=== PATIENT | female | born 1990 | race Caucasian/White ===

== ENCOUNTER 2021-01-04 20:02 | Emergency (ER) | payer SELFPAY ==
[2021-01-04 20:19] VITALS: BP 135/78; PULSE 88; TEMP 98.2; BMI 26.5
[2021-01-04] MEDS ORDERED: SODIUM CHLORIDE 1,000 ML IV ONE (20:28)
[2021-01-04 20:47] LABS: BASO % 1.1 % (0-2.0); EOS % 3.3 % (0-4.5); HEMATOCRIT 40.4 % (32.4-45.2); HEMOGLOBIN 14.2 GM/dl (10.7-15.3); LYMPH % 30.3 % (8-40); MCH 31.2 pg (25.7-33.7); MCHC 35.2 g/dl (32.0-36.0); MEAN CELL VOLUME 88.6 fl (80-96); MEAN PLT VOLUME 8.9 fl (7.5-11.1); MONO % 9.4 % (3.8-10.2); NEUT % 55.9 % (42.8-82.8); PLATELET COUNT 296 10^3/uL (134-434); RBC 4.56 M/mm3 (3.60-5.2); RDW 11.7 % (11.6-15.6); WHITE BLOOD COUNT 7.8 K/mm3 (4.0-10.8)
[2021-01-04 21:02] LABS: EPITHELIAL CELLS FEW /hpf
[2021-01-04 21:05] LABS: BILIRUBIN,TOTAL 0.9 mg/dl (0.2-1); CREATININE 0.8 mg/dl (0.55-1.3); TOT PROT 6.5 g/dl (6.4-8.2)
== END 2021-01-04 21:31 | disposition home or self-care (01) ==
LOC: FER 20:02
PROC: 3E0337Z Introduction of Electrolytic and Water Balance Substance into Peripheral Vein, Percutaneous Approach (ICD-10-PCS; principal; 2021-01-04)
DX: R20.2 Paresthesia of skin (principal)
CPT/HCPCS: 36415; 80053; 81003; 81015; 84703; 85025; 93005; 99284-25

== ENCOUNTER 2023-07-29 11:53 | Emergency (ER) | payer OTHER ==
[2023-07-29 12:15] VITALS: BP 133/81; PULSE 72; RESP 18; TEMP 98; BMI 27.4
== END 2023-07-29 13:34 | disposition home or self-care (01) ==
LOC: FER 11:53
DX: R55 Syncope and collapse (principal)
CPT/HCPCS: 82962; 84703; 93005; 99284-25